=== PATIENT | male | born 1950 | race Caucasian/White ===

== ENCOUNTER 2024-11-20 09:53 | Observation (INO) ==
--- NOTE | 2024-11-12 12:18 | Anesthesiology Consultation ---
Date of Service November 12, 2024 Assessment & Plan (1) Encounter for pre-operative examination: Chart Review Chart Review: Acceptable Risk for Surgery History Surgery Operation Date: 11/20/24 08:15 Proposed Procedures p TURP (Transurethral Resection of Prostate), - Fernie Alonso MD s Laser Lithalopaxy - Fernie Alonso MD Height/Weight Height: 6 ft 3 in Weight: 86.183 kg Allergies Allergy/AdvReac Type Severity Reaction Status Date / Time nitrofurantoin AdvReac Intermediate Rash Verified 11/09/24 13:59 [From Macrobid] Medications Home Medications Medication Instructions Recorded Confirmed Last Taken losartan 25 mg tablet 25 mg PO QAM 11/01/24 11/09/24 Unknown tamsulosin 0.4 mg capsule 0.4 mg PO QAM 11/01/24 11/09/24 Unknown Past Medical History Medical History (Updated 11/12/24 @ 12:18 by Miguel López MD) Encounter for pre-operative examination Hx of Lyme disease 2019- treated History of bladder stone Abnormal echocardiogram to follow w/ [facility] for results - week of 11/12/24 HTN (hypertension) BPH (benign prostatic hyperplasia) Past Surgical History Surgical History Hx of colonoscopy History of lithotripsy Hx of cystoscopy Social History Smoking Status: Never smoker Do You Dip or Chew Tobacco: No Hx Alcohol Use: Yes alcohol intake frequency: a few times a month Hx Substance Use: No substance use type: does not use Testing Laboratory Results Laboratory Tests 11/05/24 00:00 Potassium 4.4 Creatinine 0.94 Echocardiogram Date: 11/06/24 EF: 50-55% Valvular Disease: + AI (mild to moderate) mildly reduced with mild LV dilation RV normal
[~2024-11-20 09:53] MED LIST: DEXAMETHASONE SOD INJ 4 MG/ML VIAL ONE; GLYCOPYRROLATE 0.2 MG/ML VIAL ONE; LIDOCAINE 2% 2 ML VIAL/AMP(20MG/ML) INFIL ONE; MIDAZOLAM HCL 1 MG/ML 2ML VIAL ONE; ONDANSETRON INJ 2 MG/ML 2 ML VIAL ONE; PROPOFOL IV EMULSION 10 MG/ML 20 ML VIAL IV ONE; fentaNYL citrate PF 100 MCG/2 ML VIAL ONE
[2024-11-20] MEDS: LR 15ML/HR IV SCH (10:26)
[2024-11-20] MEDS ORDERED: HYDROmorphone INJ 2 MG/ML SYR/VIAL IV PRN (10:44)
[2024-11-20] MEDS ORDERED: ePHEDrine sulfate 50 MG/ML AMP IV PRN (10:44)
[2024-11-20] MEDS ORDERED: ATROPINE SULFATE 0.1 MG/ML 10ML SYR IV PRN (10:44)
[2024-11-20] MEDS ORDERED: PROMETHAZINE HCL 6.25 MG in SODIUM CHLORIDE 0.9% 50 ML IV PRN (10:44)
--- NOTE | 2024-11-20 11:22 | History & Physical Bridge Note ---
Date of Service November 20, 2024 History & Physical Bridge Note I have examined the patient, reviewed the History & Physical and in the interval since the performance of the History & Physical I have noted the following changes of clinical significance: no changes noted
[2024-11-20] MEDS: CIPROFLOXACIN / D5W 400 MG/200 ML BAG IV SCH (11:33)
--- NOTE | 2024-11-20 12:56 | Operative Report ---
PG Post Operative Report Pre & Post Diagnosis Operation Date: 11/20/24 11:30 Pre-Op Diagnosis: Benign Prostatic Hyperplasia with Lower Urinary Tract Obstruction Bladder Calculi Post-Op Diagnosis: Benign Prostatic Hyperplasia with Lower Urinary Tract Obstruction Bladder Calculi I identified the patient and participated in the time-out.: Yes Procedure Operation Date: 11/20/24 11:30 Actual Procedures p Transurethral Resection of the Prostate(Not Applicable) - Fernie Alonso MD s Cystolithalopaxy(Not Applicable) - Fernie Alonso MD Surgeon Fernie Alonso MD Channel Cementer None Estimated Blood Loss 10 Findings Consistent with Post-Op Diagnosis Specimens 1. Prostate chips for routine pathology 2. Bladder calculi for chemical analysis Description of Procedure The patient was identified in the preoperative holding area, appropriate informed consents were reviewed and completed and the patient was transferred to the operative suite. Upon arrival, appropriate antibiotics and anesthesia were administered and the patient was placed in dorsal lithotomy position and prepped and draped in sterile fashion. To begin the case to pass a 26 [place]i resectoscope with 30 degree lens and visual obturator peer inspection revealed a healthy-appearing urethra and an enlarged prostate with a substantially high bladder neck and a large intravesical median lobe. This was a pedunculated median lobe. The lateral lobes of the prostate were also obstructing and his bladder is heavily trabeculated. I was able to identify a bladder calculus immediately behind the intravesical median lobe. I could not at that time visualize the ureteral orifices but had a strong suspicion that they were located immediately posterior to the median lobe. Rather than treat the stone first, given the size of the median lobe I felt that resection of the median lobe needed to occur before treatment of the stone. I utilized a loop electrode and I resected the intravesical median lobe. This greatly improved the appearance of the bladder neck. I did proceed to resect the left and right lateral lobes as well as some anterior tissue. I irrigated all prostate chips out of the bladder before turned my attention back to the stone. I then utilized a 365 m laser fiber and I treated this 2 cm stone without difficulty. All stone fragments were irrigated out of the bladder and school admissions representative sampling was passed off the table for chemical analysis. I then utilized a loop electrode to make a final pass over the prostatic tissue to confirm that hemostasis was achieved. Hemostasis was excellent. The appearance of the prostatic fossa was excellent. I did inspect thoroughly for ureteral orifices and confirm that both were spared from the resection. Resection came relatively close to the right UO but had a bit of buffer on the left. Neither was involved or resected. I then placed a 22 [place]i Caraballo catheter and inflated the balloon with 30 cc of sterile water. He was reversed of anesthesia and taken to the recovery room in stable condition. There were no complications I attest to the content of the Intraoperative Record and any orders documented therein. Any exceptions are noted below.
--- NOTE | 2024-11-20 13:50 | Anesthesiology Progress Note ---
Date of Service November 20, 2024 Anesthesia Post Procedure Vital Signs Vital Signs: Temp Pulse Pulse Resp BP Pulse Ox O2 Del Method 11/20/24 13:25 36.4 C L 51 L 16 156/67 H 99 Room Air 11/20/24 13:15 51 L 16 159/93 H 99 Room Air 11/20/24 13:05 62 16 163/82 H 98 Room Air 11/20/24 12:55 59 L 16 164/92 H 98 Room Air 11/20/24 12:49 36.3 C L 62 16 174/92 H 95 Room Air 11/20/24 10:15 37 C 60 18 178/94 H 95 Room Air Transfer of Care Handoff Completed per policy Notes Mental Status: alert / awake / arousable and participated in evaluation Nausea / Vomiting: adequately controlled Pain: adequately controlled Airway Patency, RR, SpO2: stable & adequate BP & HR: stable & adequate Hydration State: stable & adequate Anesthetic Complications: no major complications apparent and Pt Satisfied with anesthetic care
[2024-11-20 13:57] LABS: Basophils # (auto) 0.02 K/uL (0.00-0.20); Basophils % (auto) 0.4 %; Eosinophils # (auto) 0.06 K/uL (0.00-0.50); Eosinophils % (auto) 1.2 %; Hematocrit (blood only) 38.5 % (42.0-52.0); Hemoglobin 13.5 g/dl (14.0-18.0); Immature Granulocytes # (auto) 0.01 K/uL (0.01-0.20); Immature Granulocytes % (auto) 0.2 %; Lymphocytes # (auto) 0.84 K/uL (1.20-3.40); Lymphocytes % (auto) 16.4 %; Mean Corpuscular Hemoglobin 28.7 pg (25.0-34.0); Mean Corpuscular Hgb Conc 35.1 g/dL (32.0-36.0); Mean Corpuscular Volume 81.9 fL (80.0-100.0); Mean Platelet Volume 9.3 fL (9.4-12.4); Monocytes # (auto) 0.18 K/uL (0.11-0.59); Monocytes % (auto) 3.5 %; Neutrophils % (auto) 78.3 %; Platelet Count 131 K/uL (130-400); RDW Coefficient of Variation 14.2 % (11.5-14.5); RDW Standard Deviation 42.7 fL (36.4-46.3); White Blood Count 5.11 K/ul (4.8-10.8)
[2024-11-20] MEDS ORDERED: traMADol HCL 50 MG TABLET PO PRN (14:12)
[2024-11-20] MEDS ORDERED: ACETAMINOPHEN 325 MG TAB PO PRN (14:12)
[2024-11-20 14:18] LABS: BUN Creatinine Ratio 26.4 (10-20); Calcium 8.7 mg/dl (8.6-10.3); Creatinine Clr Calc Pharmacy 87.7 ml/min; Potassium 4.5 mmol/L (3.5-5.1)
[2024-11-20] MEDS: SODIUM CHLORIDE 0.9% 500 ML IV SCH (14:52)
[2024-11-20] MEDS: diphenhydrAMINE Capsule 25 MG CAP PO STA (14:59)
[2024-11-20] MEDS: MEROPENEM 500 MG in SYRINGE 0 ML IV SCH (15:29)
[2024-11-20] MEDS: LOSARTAN POTASSIUM 25 MG TAB PO SCH (21:19)
[2024-11-21 07:14] VITALS: BP 138/77; PULSE 69; RESP 16; TEMP 98.4; O2SAT 94
--- NOTE | 2024-11-21 08:05 | Urology Progress Note ---
Date of Service November 21, 2024 Assessment & Plan (1) Bladder calculi: (2) Benign prostatic hyperplasia (BPH) with straining on urination: Plan Postop day #1 status post TURP and cystolitholapaxy Very much on pace Plan for voiding trial this morning and discharge home We will cover with doxycycline x 5 days Can stop his tamsulosin Admission and Anticipated Discharge Date Admission Date: November 20, 2024 Subjective No issues overnight Urine is appropriate Feels well No pain Physical Exam Physical Exam: Urine generally clear with some blood-tinged areas but overall very appropriate for postop day #1 Results & Data Vital Signs (Past 12 Hours) Vital Signs Temp Pulse Resp BP Pulse Ox O2 Del Method 11/21/24 07:14 36.9 C 69 16 138/77 94 Room Air 11/21/24 03:00 36.8 C 64 18 136/74 97 Room Air 11/20/24 23:00 36.6 C 74 18 122/77 97 Room Air PG Care Time/CCT Total # of Minutes Spent Total Time Spent with Patient: Total time spent is greater than 50% in coordination of care (as documented) at patient's floor/unit and/or counseling patient: Coding Level of Care Code None Diagnoses Bladder calculi N21.0 Benign prostatic hyperplasia (BPH) with straining on urination N40.1; R39.16
[2024-11-21 08:10] LABS: Basophils # (auto) 0.02 K/uL (0.00-0.20); Basophils % (auto) 0.2 %; Eosinophils # (auto) 0.01 K/uL (0.00-0.50); Eosinophils % (auto) 0.1 %; Hematocrit (blood only) 37.1 % (42.0-52.0); Hemoglobin 13.1 g/dl (14.0-18.0); Immature Granulocytes # (auto) 0.06 K/uL (0.01-0.20); Immature Granulocytes % (auto) 0.6 %; Lymphocytes # (auto) 1.17 K/uL (1.20-3.40); Mean Corpuscular Hemoglobin 28.1 pg (25.0-34.0); Mean Corpuscular Hgb Conc 35.3 g/dL (32.0-36.0); Mean Corpuscular Volume 79.6 fL (80.0-100.0); Mean Platelet Volume 9.6 fL (9.4-12.4); Monocytes % (auto) 8.5 %; Neutrophils # (auto) 8.43 K/uL (1.40-6.50); Neutrophils % (auto) 79.6 %; Platelet Count 167 K/uL (130-400); RDW Coefficient of Variation 14.4 % (11.5-14.5); RDW Standard Deviation 41.2 fL (36.4-46.3); Red Blood Count 4.66 M/uL (4.70-6.10); White Blood Count 10.59 K/ul (4.8-10.8)
[2024-11-21 08:23] LABS: BUN Creatinine Ratio 20.6 (10-20); Calcium 8.4 mg/dl (8.6-10.3); Creatinine Clr Calc Pharmacy 74.8 ml/min
--- NOTE | 2024-11-21 11:58 | Discharge Summary ---
Date of Service November 21, 2024 Principal Diagnosis BPH; bladder calculus Discharge Data Allergies Allergy/AdvReac Type Severity Reaction Status Date / Time nitrofurantoin AdvReac Intermediate Rash Verified 11/20/24 10:11 [From Macrobid] Procedures Performed Operation Date: 11/20/24 11:30 Actual Procedures p Transurethral Resection of the Prostate(Not Applicable) - Fernie Alonso MD s Cystolithalopaxy(Not Applicable) - Fernie Alonso MD Hospital Course (1) Bladder calculi: (2) Benign prostatic hyperplasia (BPH) with straining on urination: Plan Admitted for TURP - tolerated procedure very well - progressed appropriately overnight - passed a voiding trial on the morning of POD#1 - d/c home in stable condition Total Time Total Time Spent Total Time Spent (In Minutes): 15 Discharge Plan Discharge Items Reason For Visit: Benign Prostatic Hyperplasia with Lower Urinary Tr Discharge Diagnosis: Benign prostatic hyperplasia with lower urinary tract symptoms Activity: Per Instructions section Lifting: No more than 25 pounds Bathing Comment: Okay to shower after discharge Sexual Activity: Wait until after follow-up appointment Exercise/Sports: Wait until after follow-up appointment Non-emergency contact: Surgeon and Urologist Call non-emergency contact if: you have a fever and your temperature is above 101 Follow-up/Referrals: Regina Caraballo MD [Primary Care Provider] - Diet: Regular Addtl Attending Provider Instructions: Please take all medications as prescribed and keep all follow-ups as scheduled. Please call our office at [phone] with any questions, concerns or need to reschedule appointments for any reason. We are happy to assist you. Tips for your recovery at home: Dont be alarmed by brownish or reddish blood or clots in your urine. This is a result of the procedure. This may occur off and on for weeks to months after the procedure but should continue to improve. Drink plenty of fluids during the day (enough to keep your urine very light colored). This will help keep a healthy flow of urine. Do not lift >25 lbs until your followup Avoid constipation. Please use a stool softener (Colace) for the first two weeks after your procedure Be sure to finish the antibiotics as prescribed. If you go home with a catheter, please wash tubing where it enters your body twice daily with mild soap (Dove or Dial). Once your catheter is removed, expect some blood in your urine and some burning when you urinate. You should have an appointment to have this removed, if you do not please call our office to arrange. Pending Studies at Discharge: Yes Stand-Alone Forms: My [facility], Smoking Cessation Medications and DC Order Prescriptions: New doxycycline hyclate 100 mg capsule 100 mg PO BID 5 Days Qty: 10 0RF Continued losartan 25 mg tablet 25 mg PO HS Discontinued tamsulosin 0.4 mg capsule 0.4 mg PO QAM Admission Data Admit Date/Time: 11/20/24 12:53 Attending Provider: Fernie Alonso Admit Provider: Fernie Alonso Primary Care Provider: Regina Caraballo Other Interventions: Discharge Summary Assessment (RN) Last Done: 11/21/24 11:16 Coding Level of Care Code 83405 IN/OBS DISCH 30 MIN/LESS Diagnoses Bladder calculi N21.0 Benign prostatic hyperplasia (BPH) with straining on urination N40.1; R39.16
== END 2024-11-21 12:56 | disposition home or self-care (01) ==
LOC: 3W 09:53 → ASU 09:53 → 3W 23:57 → UNDODISOB 11-21 11:17